=== PATIENT | male | born 1955 | race Caucasian/White ===

== ENCOUNTER 2023-12-11 13:05 | Emergency (ER) | payer BC, SELFPAY ==
[2023-12-11] VITALS (9 sets, daily range): BP systolic 107–163; BP diastolic 66–120; BMI 29.7
--- NOTE | 2023-12-11 13:20 | ED.GENMED ---
History of Present Illness
General
Chief Complaint: Dizziness
Source: patient
Exam Limitations: none
Time Seen by Provider: 12/11/23 13:10
History of Present Illness
History of Present Illness:
68-year-old male sudden onset of disequilibrium about 12:45 PM. Patient was at a [facility] fair. Describes it as disequilibrium lightheaded sweaty. Followed by double vision on arrival to the ER. No other focal neurologic symptoms complaint.
Past History
Past History
ED Past Medical History: HTN and Hypercholesterolemia
ED Past Surgical History: Orthopedic and Other (Hernia repair)
Social History
Tobacco: Non-smoker
Personal:
Living: with family
Employment: Employed
Review of Systems
Review of Systems
All Other Systems: Not applicable
Respiratory: Reports no symptoms
ABD/GI: Denies bloody stools or black stools
Phy Exam
Physical Exam
Physical Exam:
GENERAL: Alert and oriented. Warm but diaphoretic
EYE: Orbits normal. Patient with
NECK: Supple, no carotid bruit
ENT: Pharynx without erythema
CARDIAC: Irregular irregular rhythm. No murmur
LUNGS: Clear breath sounds,normal
ABDOMEN: Soft, without focal tenderness or distention
NEUROLOGICAL: Alert and oriented , speech normal. No facial droop. Poor lkuuey-nv-tact but appears to be more from inability to locate the finger. No arm drift. Lower extremity strength intact. Light touch intact.
SKIN: Warm and diaphoretic., no rash or lesion, no discoloration, skin intact.
MUSCULOSKELETAL: No edema,no deformity.Good color
PSYCH: Normal and appropriate interaction.
Course
Orders/Labs/Results
Orders:
Orders
12/11/23 13:08
Electrocardiogram (*1) Urgent
Reason for Study: Bradycardia / Tachycardia
EKG- Treatment ONCE
12/11/23 13:14
CT Head/Neck Ang STROKE ALERT Urgent
Comment:
Reason For Exam: Disequilibrium/double vision/atrial flutter
Pulse Ox/cont/shift [RESP] Stat
Quantity: 1
12/11/23 13:15
CT Head W/o Cont STROKE ALERT Urgent
Comment:
Reason For Exam: Disequilibrium/double vision/atrial flutter
12/11/23 13:40
Tenecteplase [Tnkase] 25 mg Syringe [Syringe Non-Pump] 0 ml IV NOW
Provider explained risk/benefits to patient &/or caregiver?: Yes
Blood pressure: 107/77
12/11/23 13:41
Complete Blood Count/With Diff Urgent
Comprehensive Metabolic Panel Urgent
PTT Urgent
Prothrombin Time Urgent
Troponin I Urgent
12/11/23 14:23
Ondansetron Injectable [Zofran] 4 mg .ROUTE .STK-MED ONE
12/11/23 14:24
Ondansetron Injectable [Zofran] 4 mg IV NOW STA
Abnormal Lab Results
12/11/23 12/11/23
13:41 13:42
RBC 4.62 L 10^6/uL
(4.70-6.10)
MCH 32.7 H pg
(27.0-31.0)
MPV 10.5 H fL
(7.4-10.4)
Absolute Monos (auto) 0.7 H 10^3/uL
(0.1-0.6)
APTT 21.5 L Sec
(23.4-35.0)
Potassium 3.2 L mmol/L
(3.5-5.1)
BUN 21 H mg/dl
(9-20)
Glucose 168 H mg/dl
(70-99)
Total Bilirubin 1.6 H mg/dl
(0.2-1.3)
POC Glucose 154 H mg/dl
(70-99)
12/11/23 13:41
12/11/23 13:41
Vital Signs
Initial and Last Documented VS:
Initial Vital Signs
Pulse Resp BP Pulse Ox
88 22 107/77 95
12/11/23 13:11 12/11/23 13:11 12/11/23 13:11 12/11/23 13:11
Last Documented Vital Signs
Temp Pulse Resp BP Pulse Ox
95.3 F L 83 19 132/80 98
12/11/23 13:57 12/11/23 14:34 12/11/23 14:34 12/11/23 14:34 12/11/23 14:30
*Radiology
Radiology exam reviewed: radiology read reviewed (Basilar artery thrombus)
*Pulse Oximetry
Patient hypoxic: no
*EKG
Interpretation: abnormal
Comparison EKG: no comparison EKG present
Heart Rate: 76
Rate: normal
Rhythm: a-fib
[place]: normal axis
Interval: normal interval
QRS Pattern: normal QRS
Ischemia: non-specific ST changes
*Rn First Assist Interpretation
Rate: normal
Interpretation: abnormal
Heart Rate: 68
Rhythm: a-fib
*Critical Care Note
Total Time (30-74mins, 75-104mins- exclusive of procedures): 70
Update Note
Update Note:
Stroke alert was called immediately upon initial evaluation in the room. This was at approximately 1:[address]. Neurology updated while in CT.
1340... Patient's palsy is a right eye medial palsy. In addition mild facial droop and mild slurred speech along with round right leg drift. Neurology recommended ADRI TNK and transfer. Patient prefers [facility]. We are contact them immediately. Plan
would be to fly the patient
8713... Multiple conversations with the transfer team. DICOM transfer was done. Video sent to the neurologic team. Multiple discussions concerning getting the helicopter here. [facility] apparently is coming.
ED Attending Note
-
Portions of this chart may have been created with voice recognition software.� Occasional wrong word or��sound alike� substitutions may have occurred due to the inherent limitations of voice recognition software.
Discharge Plan
Departure
Patient Disposition: Acute Care Hospital
Date of Disposition: 12/11/23
Time of Disposition: 14:19
Discharge Problem:
Basilar artery thrombosis, Atrial fibrillation
Prescriptions:
No Action
ibuprofen [Advil] 200 MG tablet
400 mg PO ONCE
Zocor
20 mg PO DAILY
hydrochlorothiazide 25 MG tablet
25 mg PO DAILY
amoxicillin-pot clavulanate 875 MG/125 MG tablet
1 tab PO BID
Patient Comments:
3 doses total taken
Hospital Transfer
Other hospital: [facility]
I certify that the patient requires transfer: Yes
Discussed case with accepting physician: Neuro transfer team
Reason for transfer: higher level of care
Interventions
Interventions:
*Risk Screen - Suicide Last Done: 12/11/23 13:11
*General Assessment Last Done: 12/11/23 13:11
*Neglect/Abuse Screening Last Done: 12/11/23 13:11
ED- Fall Risk Assessment Last Done: 12/11/23 14:52
*Nursing Disposition Last Done: 12/11/23 14:52
ED- Neurological Assessment Last Done: 12/11/23 13:22
Discharge Date and Time
Discharge Date/Time: 12/11/23 14:53
Print Language: YI
--- NOTE | 2023-12-11 13:22 | CON.NEURO4 ---
Addendum entered and electronically signed by Thuy Nuñez DO 12/11/23 16:00:
Studies reviewed.
I have personally examined the patient. I agree with the AUTOMATIC CIGAR WRAPPER TENDER's Note.
My addenda: 68 year-old male with abrupt onset of dysequilibrium and diaphoresis while at the [facility] earlier today. Initially it was stated that he had onset of symptoms around 12:45am. I spoke with his on the phone. She stated that the
last time that she definitively spoke with him was around 10 AM and he was at his baseline. She thinks that around 1115 AM he had onset of symptoms and 'did not look right to her.' In the ER he began to have some diplopia that he first noticed
when being examined by Dr. Lewis. Later he developed RUE drift. He was found to be in new-onset atrial aflutter. Agree with exam as documented below except he did have RLE drift; NIHSS was 6. TNK was given. CTA showed short segment occlusion of
the tip of the basilar artery which extends slightly into the P1 segment of the left posterior cerebral artery. Reviewed with patient and ; he was transferred to [facility] emergently for possible thrombectomy.
Critical care time 65 mins
.
Original Note:
Documented by User: KELLY Mcgill 12/11/23 14:58
Consultation - Neurology 4
-
CONSULTING PHYSICIAN: Dr. Thuy Nuñez
REFERRING PHYSICIAN: Dr. Mark Anthony Lewis
DICTATED BY: KELLY Mcgill
DATE/TIME OF REQUEST: 12/11/2023
DATE/TIME OF CONSULTATION: 12/11/2023
Reason for Consultation: stroke alert
History of Present Illness:
This is a 68 year old male patient who has presented to the hospital with reports of sudden disequilibrium and diaphoresis. He was at the [facility] when he had acute onset of symptoms. EKG shows new onset atrial flutter. CTA shows basilar
artery occlusion. TNK need to be given. Patient to be transferred to [facility].
Past Medical History: Hypertension, hyperlipidemia, ED
Surgical History: Left hand fracture with hardware 1977, inguinal hernia repair, prostate biopsy 2020
Family History:
Father with Parkinson's disease, mental illness, suicide
Mother ovarian cancer
Social History: Non-smoker, no alcohol use
Allergies: see below
Home Medications: see below
Review of Symptoms:
Patient denies any fever, headache, chest pain, shortness of breath, GI or symptoms.
Vital Signs: see below
Physical Exam:
The patient is afebrile, heart sounds S1 and S2 are regular, and chest is clear to auscultation bilaterally.
NIH Stroke Scale:
I performed the NIH stroke scale on the patient on 12/11/2023 135. The patient scored 6 points on the NIH stroke scale assessment-see below
Neurologic Examination:
The patient is awake, alert and oriented x 3. He is able to follow commands and answer questions appropriately. There is mild aphasia no dysarthria. On cranial nerve assessment, pupils are 3 mm bilateral, round and reactive to light and
accommodation. Visual lloyd are full. Right EOM reduced. Left EOM intact. Facial sensations are intact and bilaterally symmetrical. There is a mild right facial droop. Hearing is intact bilaterally to normal conversation volume. Tongue palate and
uvula are midline. Sternocleidomastoid strengths are full bilaterally. Motor strengths are 5/5 bilateral upper and lower extremities on medical research Mccleary scale. There is no drift of upper extremities, right left leg mild drift. No
involuntary movement noted. Deep tendon reflexes are 2+ bilateral upper and lower extremities and Babinski is absent bilaterally. Sensations of touch and temperature intact and bilaterally symmetrical. There was no extinction noted on double
simultaneous stimulation. Coordination is intact by finger to nose reduced bilaterally.
Lab Results: see below
Neuro Imaging: CT head 12/11/2023-No acute intracranial hemorrhage.
CTA head and neck 12/11/2023-CTA Head: There is short segment occlusion of the tip of the basilar artery which extends slightly into the P1 segment of the left posterior cerebral artery. There is opacification of the
bilateral posterior cerebral arteries without additional high-grade stenosis.
Hypoplastic right A1 segment with the A2 segment originating off the left side.
CTA Neck: Atherosclerotic calcifications of the bilateral carotid bifurcations without significant stenosis. Atherosclerotic calcifications of the mid left common carotid artery with resultant mild stenosis.
Impression:
VANDANA TURCIOS is a 68 year old M who has presented to the hospital with sudden disequilibrium and diaphoresis.
Differentials for the patient's presentation include:
1. acute ischemic stroke in setting of new onset a-flutter
Patient has the following risk factors for their symptoms:
IV Tenecteplase/IAT candidacy is
Recommendations:
1. CT head/CTA head and neck stat-awaiting results-shows basilar artery occlusion-stat transfer to [facility] to be administered
2. EKG completed and shows atrial flutter
Discussed patient care with Dr. Lewis, Dr. Nuñez and patient
NIH Stroke Score
NIH Stroke Score
Level of Consciousness: 0 - Alert
LOC Questions: 0-Answers both correctly
LOC Commands: 0-Performs both correctly
Best Horizontal Gaze: 1-Partial gaze palsy
Visual Lloyd: 0=Normal, no visual loss
Facial Palsy: 1=Minor paralysis
Motor - Right Arm: 0=No drift 10 seconds
Motor - Left Arm: 0=No drift 10 seconds
Motor - Right Le-Drift < 5 seconds
Motor - Left Le-No drift 5 seconds
Limb Ataxia: 2-Present in two limbs
Sensation: 0-Normal
Best Language: 1-Mild aphasia
Dysarthria: 0-Normal
Extinction and Inattention: 0-No abnormality
Total Score:: 6
Medication and Allergies
Home Medications
Home Medications
�Medication �Instructions �Recorded
Zocor 20 mg PO DAILY 08/25/09
amoxicillin 875 mg-potassium 1 tab PO BID 08/25/09
clavulanate 125 mg tablet
hydrochlorothiazide 25 mg tablet 25 mg PO DAILY 08/25/09
ibuprofen 200 mg tablet (Advil) 400 mg PO ONCE 08/25/09
Allergies
Allergies
Allergy/AdvReac Type Severity Reaction Status Date / Time
No Known Allergies Allergy Verified 12/11/23 13:07
Vital Signs and Labs
-
Vital Signs and Labs:
Vital Signs
Pulse Resp BP Pulse Ox
88 22 107/77 95
12/11/23 13:11 12/11/23 13:11 12/11/23 13:11 12/11/23 13:11

Documented by User: Thuy Nuñez DO 12/11/23 15:44
NIH Stroke Score
NIH Stroke Score
Total Score:: 6
[2023-12-11 13:47] LABS: Glucose - Point of Care 154 mg/dl (70-99)
[2023-12-11] MEDS: TNKASE 5 MG IV (13:47)
[2023-12-11 13:54] LABS: % Basophils 0.5 % (0-2); % Eosinophils 1.6 % (0-6); % Immature Granulocytes 0.4 % (0-0.5); % Lymphocytes 28.3 % (20.5-51.1); % Monocytes 8.2 % (1.7-9.3); Absolute Eosinophils 0.1 10^3/uL (0-0.7); Absolute Lymphocytes 2.4 10^3/uL (1.2-3.4); Absolute Monocytes 0.7 10^3/uL (0.1-0.6); Absolute Neutrophils 5.1 10^3/uL (1.4-6.5); Hematocrit 41.9 % (39.0-52.0); Hemoglobin 15.1 g/dL (13.0-18.0); Mean Corpuscular Hgb 32.7 pg (27.0-31.0); Mean Corpuscular Volume 90.7 fL (80.0-94.0); Mean Platelet Volume 10.5 fL (7.4-10.4); Nucleated Red Blood Cells % 0 % (-); Platelet Count 192 10^3/uL (130-400); Red Blood Cell Count 4.62 10^6/uL (4.70-6.10); Red Cell Dist. Width 12.8 % (11.5-14.5); White Blood Cell Count 8.4 10^3/uL (4.8-10.8)
[2023-12-11 13:59] LABS: INR 1.06; PT 13.8 Sec (11.4-14.6)
[2023-12-11 14:02] LABS: ALT (SGPT) 32 U/L (0-50); AST (SGOT) 32 U/L (17-59); Albumin 4.3 g/dl (3.5-5.0); Alkaline Phosphatase 58 U/L (38-126); Blood Urea Nitrogen 21 mg/dl (9-20); Calcium 9.4 mg/dl (8.4-10.2); Carbon Dioxide 22 mmol/L (22-30); Chloride 102 mmol/L (98-107); Estimated Creatinine Clearance 79 ml/min; Glucose 168 mg/dl (70-99); Potassium 3.2 mmol/L (3.5-5.1); Sodium 136 mmol/L (135-145); Total Bilirubin 1.6 mg/dl (0.2-1.3); Total Protein 6.3 g/dl (6.3-8.2); eGFR > 60.00
[2023-12-11 14:15] LABS: Troponin I < 0.012 ng/ml
[2023-12-11] MEDS: ZOFRAN 4 MG IV (14:24)
[2023-12-11 14:36] LABS: APTT 21.5 Sec (23.4-35.0)
== END 2023-12-11 14:53 | disposition short-term general hospital (02) ==
LOC: EMR 13:05
PROVIDERS: EMERGENCY PHYSICIAN Emergency Medicine; FAMILY PHYSICIAN Physician Assistant Medical; OTHER PHYSICIAN Psychiatry & Neurology Neurology
DX: R42 Dizziness and giddiness (principal); R61 Generalized hyperhidrosis; R29.810 Facial weakness; R47.81 Slurred speech; H53.2 Diplopia; I65.1 Occlusion and stenosis of basilar artery; I48.91 Unspecified atrial fibrillation; I10 Essential (primary) hypertension; E78.00 Pure hypercholesterolemia, unspecified; I48.92 Unspecified atrial flutter
CPT/HCPCS: 99291; 96374; 96375; 70450; 70496; 70498; 80053; 82962; 84484; 85025; 85610; 85730; 93005; J3101; Q9967

== ENCOUNTER 2023-12-23 11:04 | Emergency (ER) | payer BC, SELFPAY ==
[2023-12-23 11:20] VITALS: BP 154/98
--- NOTE | 2023-12-23 12:30 | ED.GENMED ---
History of Present Illness
General
Chief Complaint: Foreign Body Removal
Source: patient
Exam Limitations: none
Time Seen by Provider: 12/23/23 11:52
Nursing documentation reviewed up to this point in time: agreed with
History of Present Illness
History of Present Illness:
68-year-old male past medical history of recent stroke hypertension hyperlipidemia presenting to the emergency department today with concerns of right wrist discomfort at site of previous peripheral IV when he was an inpatient here last week.
Denies any chest pain shortness of breath or additional concerns.
Past History
Past History
ED Past Medical History: HTN and Hypercholesterolemia
ED Past Surgical History: Orthopedic and Other (Hernia repair)
Social History
Tobacco: Non-smoker
Personal:
Living: with family
Employment: Employed
Review of Systems
Review of Systems
Allergies reviewed?: Yes
All Other Systems: ROS reviewed and negative except as documented in HPI and ROS
Phy Exam
Physical Exam
Physical Exam:
GENERAL: Alert , in no apparent distress
EYE: pupils equal and reactive
NECK: Supple, no significant adenopathy.
ENT: o/p clr, mmm.
CARDIAC: Regular rate and rhythm .
LUNGS: Clear breath sounds bilaterally, no acute respiratory distress, no wheezes/rales/rhonchi
ABDOMEN: Soft, without focal tenderness, no r/g, no cvat
NEUROLOGICAL: Alert and oriented, no focal neuro deficits
SKIN: Warm and dry, skin intact.
MUSCULOSKELETAL: Right wrist with mild tenderness palpation and mild swelling to the dorsal wrist overlying and vein. Slight firmness to the vein when palpating. No edema, well perfused.
PSYCH: Normal and appropriate interaction.
Course
Vital Signs
Initial and Last Documented VS:
Initial Vital Signs
Temp Pulse Resp BP Pulse Ox
97.9 F 95 18 154/98 98
12/23/23 11:20 12/23/23 11:20 12/23/23 11:20 12/23/23 11:20 12/23/23 11:20
Last Documented Vital Signs
Temp Pulse Resp BP Pulse Ox
97.9 F 89 16 137/91 98
12/23/23 11:20 12/23/23 12:42 12/23/23 12:42 12/23/23 12:42 12/23/23 12:42
MDM/Problems Addressed
MDM/Problems Addressed:
68-year-old male presenting to the emergency department concerns of a slight discomfort to the area of previous IV catheter when admitted to the hospital 1 week ago. Here there is slight redness to the area which appears to be consistent with
likely superficial thrombophlebitis. No signs or symptoms of DVT. Plan for treatment with warm compresses and otherwise close outpatient follow-up. Return precautions given. Patient is already anticoagulated.
*Critical Care Note
Total Time (30-74mins, 75-104mins- exclusive of procedures): Not Applicable
ED Attending Note
-
Portions of this chart may have been created with voice recognition software.� Occasional wrong word or��sound alike� substitutions may have occurred due to the inherent limitations of voice recognition software.
Discharge Plan
Departure
Patient Disposition: Home (Routine Discharge)
Date of Disposition: 12/23/23
Time of Disposition: 12:30
Patient with high blood pressure during this ER visit?: No
Condition: Good
Covid-19: Not Applicable
Discharge Problem:
Superficial thrombophlebitis
Instructions: Superficial vein phlebitis and thrombosis
Prescriptions:
No Action
ibuprofen [Advil] 200 MG tablet
400 mg PO ONCE
Zocor
20 mg PO DAILY
hydrochlorothiazide 25 MG tablet
25 mg PO DAILY
amoxicillin-pot clavulanate 875 MG/125 MG tablet
1 tab PO BID
Patient Comments:
3 doses total taken
Activity Restrictions/Additional Instructions:
You came to the emergency department today for concerns of discomfort to your right wrist. This appears to be a superficial thrombophlebitis. Please use warm compresses that should go away on its own over the next few days. Return to the
emergency department any worsening, new or concerning symptoms.
Interventions
Interventions:
*Risk Screen - Suicide Last Done: 12/23/23 12:02
*General Assessment Last Done: 12/23/23 12:02
*Neglect/Abuse Screening Last Done: 12/23/23 12:02
ED- Fall Risk Assessment Last Done: 12/23/23 12:42
*ED COVID-19 Vaccine History Last Done: 12/23/23 12:02
*Nursing Disposition Last Done: 12/23/23 12:42
Discharge Date and Time
Discharge Date/Time: 12/23/23 12:43
Print Language: LITHUANIAN
[2023-12-23 12:42] VITALS: BP 137/91
== END 2023-12-23 12:43 | disposition home or self-care (01) ==
LOC: EMR 11:04
PROVIDERS: EMERGENCY PHYSICIAN Emergency Medicine; FAMILY PHYSICIAN Physician Assistant Medical
DX: I80.8 Phlebitis and thrombophlebitis of other sites (principal); I10 Essential (primary) hypertension; E78.00 Pure hypercholesterolemia, unspecified
CPT/HCPCS: 99282

== ENCOUNTER 2024-01-20 07:35 | Day surgery (SDC) | payer BC, SELFPAY ==
[2024-01-20 08:23] VITALS: BMI 30.7
--- NOTE | 2024-01-20 10:52 | ITS.CL.CARDI ---
Thread Puller - Cardioversion
Cardioversion
Procedure Report:
Date of Procedure: Jan 20 2024
Procedure: Cardioversion
Indication: Symptomatic atrial fibrillation
Performing Physician: Donta Peralta DO, FACC
Technique: The patient was brought to the holding area. Signed informed consent was obtained. A time out was called and performed. The patient was anesthetized by the anesthesia service. Anticoagulation status was reviewed and appropriate. R2 pads
were placed anteriorly and posteriorly. Following successful ADRI, a 250 J synchronized biphasic shock restored normal sinus rhythm without significant bradycardia. There were no complications.
Conclusion: Uncomplicated cardioversion from atrial fibrillation to sinus rhythm.
Recommendation: Routine post cardioversion care. Continue termite control representative anticoagulation.
--- NOTE | 2024-01-20 11:18 | W.PN.UPDATE ---
Update Note
Progress Note Update
Pt presented for a cardioversion. Confirmed that pt has been taking his anticoagulation without missing any doses. Device rep Jacobo initiated ATP for atrial arrhythmia and this was successful in terminating aFlutter to sinus. Pt tolerated
reprogramming. Continue anticoagulation. Follow up as scheduled. Cardioversion canceled. Pt in sinus with stable vitals.
General: No acute distress, AAOX3
Neck: Negative JVD
Heart: Regular, Negative S3 positive S1/S2, Negative S4, No murmur
Lungs: CTA b/l, negative wheezes/rales/rhonchi
Abd: Positive BS, NT/ND, neg rebound/rigidity/guarding
Ext: Negative cyanosis/clubbing/edema
Neuro: nonfocal
== END 2024-01-20 11:10 | disposition home or self-care (01) ==
LOC: CATH 07:35
PROVIDERS: ATTENDING PHYSICIAN Internal Medicine Cardiovascular Disease; FAMILY PHYSICIAN Physician Assistant Medical; OTHER PHYSICIAN Internal Medicine Cardiovascular Disease
DX: I08.1 Rheumatic disorders of both mitral and tricuspid valves (principal); I48.91 Unspecified atrial fibrillation; I10 Essential (primary) hypertension; E78.00 Pure hypercholesterolemia, unspecified; Z79.01 Long term (current) use of anticoagulants
CPT/HCPCS: 93312; 93320; 93325; 92960; 93005

== ENCOUNTER → 2024-02-25 07:14 | Outpatient (REF) | payer BC, SELFPAY | LOC: DHCBC/DCA 07:14 | PROVIDERS: ATTENDING PHYSICIAN Nurse Practitioner; FAMILY PHYSICIAN Physician Assistant Medical | DX: I48.91 Unspecified atrial fibrillation (principal) | CPT/HCPCS: 78452; 93017; A9500; J2785 ==

== ENCOUNTER → 2024-03-08 11:45 | Outpatient (REF) | payer BC, SELFPAY | LOC: DHSLP 11:45 | PROVIDERS: ATTENDING PHYSICIAN Nurse Practitioner; FAMILY PHYSICIAN Physician Assistant Medical | DX: G47.33 Obstructive sleep apnea (adult) (pediatric) (principal) | CPT/HCPCS: 95800 ==

== ENCOUNTER 2024-08-05 08:01 | Day surgery (SDC) | payer BC, SELFPAY | END 2024-08-05 11:10 | disposition home or self-care (01) | LOC: CATH 08:01 | PROVIDERS: ATTENDING PHYSICIAN Internal Medicine Cardiovascular Disease; FAMILY PHYSICIAN Physician Assistant Medical | DX: I48.0 Paroxysmal atrial fibrillation (principal); I08.1 Rheumatic disorders of both mitral and tricuspid valves; I10 Essential (primary) hypertension; E78.2 Mixed hyperlipidemia; G47.33 Obstructive sleep apnea (adult) (pediatric); Z86.73 Personal history of transient ischemic attack (TIA), and cerebral infarction without residual deficits; Z79.01 Long term (current) use of anticoagulants | CPT/HCPCS: 93312; 93320; 93325 ==

== ENCOUNTER 2024-08-11 06:07 | Day surgery (SDC) | payer BC, SELFPAY ==
[2024-07-14 09:11] VITALS: BMI 30.4
[2024-07-14 09:51] LABS: % Basophils 0.6 % (0-2); % Eosinophils 4.1 % (0-6); % Immature Granulocytes 0.4 % (0-0.5); % Lymphocytes 31.9 % (20.5-51.1); % Monocytes 8.5 % (1.7-9.3); % Neutrophils 54.5 % (42.2-75.2); Absolute Eosinophils 0.2 10^3/uL (0-0.7); Absolute Lymphocytes 1.7 10^3/uL (1.2-3.4); Absolute Monocytes 0.5 10^3/uL (0.1-0.6); Absolute Neutrophils 2.9 10^3/uL (1.4-6.5); Hemoglobin 14.8 g/dL (13.0-18.0); Mean Corp Hgb Conc. 33.6 g/dL (33.0-37.0); Mean Corpuscular Hgb 30.6 pg (27.0-31.0); Mean Corpuscular Volume 90.9 fL (80.0-94.0); Mean Platelet Volume 10.4 fL (7.4-10.4); Nucleated Red Blood Cells % 0 % (-); Platelet Count 202 10^3/uL (130-400); Red Blood Cell Count 4.84 10^6/uL (4.70-6.10); Red Cell Dist. Width 13.1 % (11.5-14.5); White Blood Cell Count 5.4 10^3/uL (4.8-10.8)
[2024-07-14 10:07] LABS: INR 1.07; PT 14.4 Sec (11.4-14.6)
[2024-07-14 10:08] LABS: ALT (SGPT) 26 U/L (0-50); AST (SGOT) 24 U/L (17-59); Albumin 4.4 g/dl (3.5-5.0); Alkaline Phosphatase 69 U/L (38-126); Blood Urea Nitrogen 16 mg/dl (9-20); Calcium 9.3 mg/dl (8.4-10.2); Carbon Dioxide 27 mmol/L (22-30); Chloride 102 mmol/L (98-107); Estimated Creatinine Clearance 95 ml/min; Glucose 119 mg/dl (70-99); Magnesium 2.1 mg/dl (1.6-2.3); Potassium 4.5 mmol/L (3.5-5.1); Sodium 138 mmol/L (135-145); Total Protein 6.7 g/dl (6.3-8.2); eGFR > 60.00
[2024-08-11] VITALS (11 sets, daily range): BP systolic 103–137; BP diastolic 64–90
[2024-08-11] MEDS: TYLENOL 1000 MG PO (07:09)
--- NOTE | 2024-08-11 07:55 | ITS.CL.ABL ---
Marketing And Development Coordinator - Ablation
Ablation
Procedure Report:
Primary Home Health Scheduler: Gallito Yuan MD
Procedure Date: 08/11/2024
Patient History:
Patient is a pleasant 68-year-old male with a past medical history significant for hypertension, hyperlipidemia, prior CVA, ZOE, and symptomatic persistent atrial fibrillation.
See H&P for complete details.
Indication:
Symptomatic persistent atrial fibrillation
Arrhythmia Specific History:
Prior Medical Therapies for Rate and Rhythm Control:
X Beta-bethany
[ ] Calcium channel-bethany
[ ] Amiodarone
[ ] Dronederone
[ ] Sotalol
[ ] Flecainide
[ ] Dofetilide
[ ] Options limited by bradycardia
[ ] Options limited by comorbid renal disease
Prior Procedural Therapies for AF/AFL:
X Cardioversion
[ ] Pulmonary Vein Isolation
[ ] Posterior Wall Isolation
[ ] Additional lines (Specify)
[ ] Surgical Salcedo-MAZE or PVI (Specify)
Procedure Performed:
X AF ablation procedure (79992) -- includes LA/CS pacing, trans-septal, 3D mapping, + ICE
[ ] +IV drug (28751)
[ ] +Other Arrhythmia (57477)
X +Other AF Line/ablation (79437) - Posterior wall isolation (floor, roof, wall)
Risks and expected recovery has been explained in detail. Alternative options have been explored, and in a shared-decision making fashion we have decided that this was the most appropriate procedure.
Method
NPO status confirmed. Grounding pad applied. Defibrillator pads applied. Continuous surface ECG, pulse oximetry, and blood pressure were monitored. Procedure was performed under general anesthesia, with anesthesia services.
Both groins were clipped, prepped with Chloraprep, and draped in sterile fashion. Time out was called. Local anesthesia administered with bupivacaine. The right femoral vein was accessed for catheter placement, using ultrasound guidance (images
saved to record), micro-puncture needle/wire, and modified seldinger technique. 3 sheaths were placed. The following catheters were used:
[ ] Tacticath SE (D/F Curve) ablation catheter
X Viewflex 9Fr ICE catheter
X Inquiry decapolar 6Fr diagnostic catheter
[ ] CRD Hex 6Fr
[ ] Arctic Front Advance Cryoballoon ([ ]28mm[ ]23mm)
[ ] Achieve Advance mapping catheter ([ ]15mm[ ]20mm)
X FlexCath Contour 10 Fr with PulseSelect PFA Catheter
X Advisor HD Grid Mapping Catheter, SE
[ ] Acuson AcuNav 8 Fr ICE catheter
[ ]Other: [ ]
Intracardiac ultrasound (ICE) was carefully advanced into the right atrium to guide sheath placement over a J-wire, catheter placement, guide trans-septal puncture, identify potential complications, identify anatomic structures and ensure proper
contact between ablation catheter and tissue.
Heparin was given prior to trans-septal puncture. Heparin was given to achieve and maintain a target ACT of 300-400 seconds throughout the procedure.
Trans-septal access was performed under ICE guidance. The trans-septal puncture was performed with a SafeSept wire through a Brockenbrough needle assembly through the steerable sheath. The wire was visualized as it entered the LSPV and system
advanced under ICE guidance and fluoroscopy into the LA. The Brockenbrough needle assembly, SafeSept wire and sheath dilator were removed under negative pressure. LA pressure was measured and recorded.
ICE and 3D mapping was performed to identify relevant cardiac structures. A careful 3D map was created to assess for regions of low-voltage and abnormal electrogram signals using HD grid mapping catheter and PulseSelect catheter. Additional mapping
was performed as outlined below.
Prior to ablation, glycopyrrolate was provided. PulseSelect catheter was advanced over J-wire to the ostium of each vein. Pulmonary vein isolation was performed with ostial and antral lesions in a circumferential manner. Contact was visualized via
EAM, ICE, fluoroscopy, and EGM signals. Posterior wall isolation was performed by anchoring the J-wire within the pulmonary vein and placing the PulseSelect catheter in contact with the posterior wall as visualized by aforementioned methods.
Following completion of ablation lesions, sinus rhythm was restored with a 200J synchronized DCCV and a post-ablation voltage/activation map was performed in sinus rhythm. Entrance and exit block were confirmed for each vein and the posterior wall.
Catheter and sheath were removed from the left atrium and post-ablation intracardiac echo evaluation was consistent with pre-ablation with no changes and no pericardial effusion and there is no left atrial thrombus or left ventricle thrombus seen.
Electrophysiology study was performed. Hemostasis was obtained with figure of 8 stitch for each groin and with manual pressure. Protamine was used for reversal.
Estimated Blood Loss
5 mL
Complications
None
Fluoroscopy: 4.2 minutes; 10.05 mGy; DAP 1.46
LA Pressure: 7 mmHg (pre), 8 mmHg (post)
Baseline Intervals:
Rhythm: AF
QRS: 77 ms
QT: 274 ms
Post-Procedure Intervals:
NM: 155 ms
QRS: 77 ms
QT: 393 ms
QTc: 393 ms
AVWB: 340 ms
AVNERP/AERP: 600/310 ms
Recommendations
- Bedrest with straight-leg precautions as ordered
- Anticipate same day discharge if patient meeting clinical metrics
- Resume home medications as indicated
- Ok to resume anticoagulation tonight if patient and groin sites stable
- PPI daily for 30 days
- Plan for follow-up in office as scheduled
Reuben Leigh DO, FACC, [facility]
Clinical Cardiac Environmental Health Aide
cc: Gallito Yuan MD; Dr Anthony Ingram
[2024-08-11 08:33] LABS: ACT-LR - POC 239 Seconds (116-155)
[2024-08-11 08:48] LABS: ACT-LR - POC 322 Seconds (116-155)
[2024-08-11 09:16] LABS: ACT-LR - POC 318 Seconds (116-155)
[2024-08-11 10:08] LABS: ACT-LR - POC 377 Seconds (116-155)
[2024-08-11 10:13] LABS: ACT-LR - POC 207 Seconds (116-155)
[2024-08-11] MEDS: ANESTHETIC LOZENGE 1 LOZENGE PO (11:29)
--- NOTE | 2024-08-11 13:53 | W.PN.UPDATE ---
Update Note
Progress Note Update
68 yo WM s/p PVI (same day). He denies cp, sob, silvnia diet, EKG SR, R fem site c/d/i no HT, soft. He will resume Eliquis tonight at home and continue metoprolol. Activity restrictions reviewed. He will f/u Dr. Yuan in 3 mo. He is for d/c home
after 315 if groin stable and able to void.
[2024-08-12 08:38] LABS: ACT-LR - POC > 397 Seconds (116-155)
== END 2024-08-11 15:16 | disposition home or self-care (01) ==
LOC: CATH 06:07
PROVIDERS: ATTENDING PHYSICIAN Internal Medicine Cardiovascular Disease; FAMILY PHYSICIAN Family Medicine; OTHER PHYSICIAN Internal Medicine Cardiovascular Disease
DX: I48.19 Other persistent atrial fibrillation (principal); I10 Essential (primary) hypertension; E78.5 Hyperlipidemia, unspecified; G47.33 Obstructive sleep apnea (adult) (pediatric); N40.0 Benign prostatic hyperplasia without lower urinary tract symptoms; Z86.73 Personal history of transient ischemic attack (TIA), and cerebral infarction without residual deficits; Z79.01 Long term (current) use of anticoagulants
CPT/HCPCS: C1732; C1894; C1769; C1733; C1766; 36415; 75572; 80053; 83735; 85025; 85347; 85610; 86850; 86900; 86901; 93005; 93656; 93657; Q9967